=== PATIENT | male | born 1985 | race Caucasian/White ===

== ENCOUNTER 2019-12-16 19:38 | Emergency (ER) | payer BC, SELFPAY ==
[2019-12-16 19:50] VITALS: BP 126/75; PULSE 84; RESP 20; TEMP 37; O2SAT 99
--- NOTE | 2019-12-16 20:14 | ED.WOUNDLAC ---
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 He is up-to-date on his tetanus vaccine. Denies numbness or tingling in the finger. Currently rates his pain 3/10. He has tried no [id number] treatment prior to arrival. Related Data Home Medications Medication Instructions Recorded Confirmed No Home Medications 12/16/19 12/16/19 Allergies Allergy/AdvReac Type Severity Reaction Status Date / Time No Known Allergies Allergy Verified 12/16/19 19:53 Review of Systems Review of Systems: Narrative: CONSTITUTIONAL: Denies body aches, fever, chills, or sweats. EYES: Denies visual changes, redness, or discharge. ENT: Denies rhinorrhea, congestion, sore throat, or otalgia. CARDIOVASCULAR: Denies chest pain, palpitations, or edema. RESPIRATORY: Denies cough or dyspnea. GASTROINTESTINAL: Denies abdominal pain, nausea, vomiting, or diarrhea. GENITOURINARY: Denies dysuria or hematuria. SKIN: Denies rash, itching, or wounds. Laceration to left fifth finger MUSCULOSKELETAL: Denies back pain, joint pain, or myalgia. NEUROLOGIC: Denies headache, numbness, tingling, or weakness. PSYCH: Denies depression or anxiety. PMFSH Comments At time of signature, I have reviewed and agree with nursing past medical, surgical, social and family history unless otherwise noted. Please see nursing chart for further information. There is no relevant family history pertinent to the presenting complaint Exam Narrative: Exam Narrative: GENERAL: Well-appearing, well-nourished, and in no acute distress. HEAD: Normocephalic, atraumatic. EYES: EOMI. No redness or drainage. Conjunctivae normal. ENT: Mucous membranes pink and moist. NECK: Normal AROM. CHEST: No respiratory distress. EXTREMITIES: Normal range of motion. No edema. SKIN: Warm, dry, no rash. Capillary refill normal. Normal skin turgor. 2 cm full-thickness linear laceration to the palmar aspect of the left fifth distal phalanx. Distal sensation intact. Capillary refill normal. Full range of motion against resistance. Moderate active bleeding. No damage to the nail. NEURO: No focal deficits. Alert and oriented x3. Gait steady. PSYCH: Normal affect. No signs of depression or anxiety. Course Vital Signs Vital signs: Vital Signs Temperature 98.6 F 12/16/19 19:50 Pulse Rate 84 12/16/19 19:50 Respiratory Rate 20 12/16/19 19:50 Blood Pressure 126/75 12/16/19 19:50 Pulse Oximetry 99 12/16/19 19:50 Temperature 98.6 F 12/16/19 19:50 Pulse Rate 84 12/16/19 19:50 Respiratory Rate 20 12/16/19 19:50 Blood Pressure 126/75 12/16/19 19:50 Pulse Oximetry 99 12/16/19 19:50 Procedures Laceration Laceration 1: Date: 12/16/19 Time: 20:00 Site: hand Side (If applicable): left Size (cm): 2 Description: linear Depth: simple, single layer Local Anesthetic: lidocaine 1% Amount of anesthesia used (mL): 5 (digital block) Pre-repair: wound explored and irrigated ====== Skin Level ====== Skin layer closed with: nylon Size (cm): 5-0 Number of sutures: 5 Technique: simple, interrupted ====== Subcutaneous Layer ====== ====== Muscle Layer ====== ====== Tendon Layer ====== Nerve Block Nerve Block 1: Nerve block date: 12/16/19 Nerve block time: 20:00 Time out performed: Yes Local Anesthetic: lidocaine 1% Amount of anesthesia used (mL): 5 Nerve Blocks: digital Procedure Successful: Yes Patient Tolerated Procedure: well
== END 2019-12-16 20:21 | disposition home or self-care (01) ==
PROVIDERS: Emergency Provider Nurse Practitioner
DX: S61.217A Laceration without foreign body of left little finger without damage to nail, initial encounter (principal); W26.0XXA Contact with knife, initial encounter
CPT/HCPCS: 12001; 99212; G0463